=== PATIENT | female | born 1975 | race Caucasian/White ===

== ENCOUNTER 2019-04-30 05:38 | Inpatient (IN) ==
[2019-04-21 11:47] LABS: Apearance,Urine CLEAR (Clear); Bilirubin,Urine Negative (Negative); Blood, Urine Negative (Negative); Glucose,Urine (UA) Negative (Negative); Ketones,Urine Negative (Negative); Nitrite,Urine Negative (Negative); Protein,Urine Negative; RBC,Urine <1 /HPF (0-4); Squamous Epithelial Cell,Urine Occasional /HPF (0-10); Urine Color Straw (Yellow); Urine Specific Gravity 1.006 (1.001-1.035); Urine Urobilinogen < 2.0 EU/DL (0.2-1.0); WBC,Urine <1 /HPF (0-6)
[2019-04-21 11:48] LABS: Basophils # 0.1 10*3/uL (0.0-0.2); Basophils % 0.4 % (0.0-0.8); Eosinophils # 0.2 10*3/uL (0.0-0.87); Eosinophils % 1.5 % (0.00-10.9); Hematocrit 43.6 VOL% (35.7-47.0); Hemoglobin 14.4 GM/DL (12.0-16.0); Immature Granulocytes % 0.6 %; Immature Granulocytes Absolute 0.08 #; Lymphocytes # 2.3 10*3/uL (1.4-4.0); Lymphocytes % 17.2 % (21.3-54.2); Mean Corpuscular Volume 91.8 FL (87-102); Mean Platelet Volume 10.3 FL (9.6-12.0); Monocytes % 4.4 % (1.7-12.7); Neutrophils % 75.9 % (38.7-73.9); Platelet Count 358 T/CUMM (130-400); Red Blood Count 4.75 MC/CUMM (3.8-5.5); Red Cell Distribution Width 13.6 % (9.3-17.3); White Blood Count 13.6 T/CUMM (4-12)
[2019-04-21 12:22] LABS: Albumin 3.5 G/DL (3.4-5.0); Bilirubin,Total 0.4 MG/DL (0.2-1.0); Calcium 8.6 MG/DL (8.5-10.1); Osmolality,Calculated 268.1 MOS/KG (273-304); Risk Ratio 3.39; Total Protein 7.3 G/DL (6.4-8.3); VLDL CHOLESTEROL 31.6 MG/DL
[2019-04-21 13:07] LABS: HIV Antigen/Antibody Result Nonreactive (Nonreactive)
[~2019-04-30 05:38] MED LIST: AMPICILLIN/SULBACTAM 3,000 MG in SODIUM CHLORIDE 0.9% 100 ML IV ONE
[2019-04-30] MEDS ORDERED: BUPIVACAINE MPF 0.5% /EPI 30 ML VIAL ONE (06:21)
[2019-04-30] MEDS ORDERED: DEXAMETHASONE 4 MG/1 ML VIAL ONE ×2 (06:21→09:59)
[2019-04-30] MEDS ORDERED: LACTATED RINGERS 1,000 ML IV SCH ×2 (06:30→12:00)
[2019-04-30] MEDS ORDERED: AMPICILLIN/SULBACTAM 3,000 MG VIAL ONE (06:49)
[2019-04-30] MEDS ORDERED: AMPICILLIN/SULBACTAM 3,000 MG in SODIUM CHLORIDE 0.9% 100 ML IV ONE (07:00)
[2019-04-30] MEDS ORDERED: MICROFIBRILLAR COLLAGEN POWDER 1 GM CAN TOP ONE (08:08)
[2019-04-30] MEDS ORDERED: MIDAZOLAM 2 MG/2 ML VIAL ONE (09:58)
[2019-04-30] MEDS ORDERED: DESFLURANE 1 UNIT/15 MINUTE INH ONE (09:58)
[2019-04-30] MEDS ORDERED: propofoL 200 MG/20 ML VIAL IV ONE (09:58)
[2019-04-30] MEDS ORDERED: LIDOCAINE 2% 5 ML VIAL ONE (09:58)
[2019-04-30] MEDS ORDERED: SUFentanil 50 MCG/ML AMP ONE (09:58)
[2019-04-30] MEDS ORDERED: PHENYLEPHRINE 1 MG/10 ML SYRINGE IV ONE (09:59)
[2019-04-30] MEDS ORDERED: ONDANSETRON 4 MG/2 ML VIAL ONE ×2 (09:59→10:05)
[2019-04-30] MEDS ORDERED: LACTATED RINGERS 2,000 ML IV ONE (09:59)
[2019-04-30] MEDS ORDERED: GLYCOPYRROLATE 0.4 MG/2 ML VIAL ONE (09:59)
[2019-04-30] MEDS ORDERED: ACETAMINOPHEN 1,000 MG/100 ML VIAL IV ONE (09:59)
[2019-04-30] MEDS ORDERED: ROCURONIUM 100 MG/10 ML VIAL IV ONE (09:59)
[2019-04-30] MEDS ORDERED: NEOSTIGMINE 10 MG/10 ML VIAL ONE (09:59)
[2019-04-30] MEDS ORDERED: KETOROLAC 30 MG/1 ML VIAL ONE (09:59)
[2019-04-30] MEDS ORDERED: ONDANSETRON 4 MG/2 ML VIAL IV ONE (10:04)
[2019-04-30 10:14] LABS: Apearance,Urine CLEAR (Clear); Bilirubin,Urine Negative (Negative); Blood, Urine Negative (Negative); Glucose,Urine (UA) Negative (Negative); Ketones,Urine Negative (Negative); Mucus,Urine Occasional /LPF (Occasional); Nitrite,Urine Negative (Negative); Protein,Urine Negative; RBC,Urine 5 /HPF (0-4); Squamous Epithelial Cell,Urine Occasional /HPF (0-10); Urine Color Yellow (Yellow); Urine Specific Gravity 1.019 (1.001-1.035); Urine Urobilinogen < 2.0 EU/DL (0.2-1.0); WBC,Urine 2 /HPF (0-6)
[2019-04-30] MEDS: MORPHINE 10 MG/1 ML VIAL IV PRN ×2 (10:14→10:28)
[2019-04-30] MEDS ORDERED: ONDANSETRON 4 MG/2 ML VIAL IV PRN (11:41)
[2019-04-30] MEDS ORDERED: MEPERIDINE 50 MG/1 ML VIAL IM PRN (11:46)
[2019-04-30] MEDS: MEPERIDINE 50 MG/1 ML VIAL IV PRN ×2 (13:14→17:19)
[2019-04-30] MEDS: AMPICILLIN/SULBACTAM 3,000 MG in SODIUM CHLORIDE 0.9% 100 ML IV SCH ×2 (17:14→23:39)
[2019-04-30 19:19] LABS: Basophils % 0.1 % (0.0-0.8); Hematocrit 39.4 VOL% (35.7-47.0); Hemoglobin 12.7 GM/DL (12.0-16.0); Immature Granulocytes % 0.5 %; Immature Granulocytes Absolute 0.08 #; Lymphocytes # 0.7 10*3/uL (1.4-4.0); Mean Corpuscular HGB Conc 32.2 GM/DL (32-36); Mean Corpuscular Volume 92.5 FL (87-102); Mean Platelet Volume 10.1 FL (9.6-12.0); Monocytes % 1.8 % (1.7-12.7); Neutrophils % 93.6 % (38.7-73.9); Platelet Count 363 T/CUMM (130-400); Red Blood Count 4.26 MC/CUMM (3.8-5.5); Red Cell Distribution Width 13.5 % (9.3-17.3); White Blood Count 16.4 T/CUMM (4-12)
[2019-04-30 19:44] LABS: Lymphocytes 4 % (20-55); Ovalocytes Few; Platelet Estimate Normal; Segmented Neutrophils 94 % (50-85); Total Cells Counted 100
[2019-04-30] MEDS ORDERED: IBUPROFEN 800 MG TABLET PO PRN (21:04)
[2019-04-30] MEDS: DOCUSATE SODIUM 100 MG CAPSULE PO SCH (21:17)
[2019-05-01 05:53] LABS: Basophils % 0.2 % (0.0-0.8); Hematocrit 35.8 VOL% (35.7-47.0); Hemoglobin 11.6 GM/DL (12.0-16.0); Immature Granulocytes % 0.7 %; Immature Granulocytes Absolute 0.12 #; Lymphocytes # 1.3 10*3/uL (1.4-4.0); Lymphocytes % 7.7 % (21.3-54.2); Mean Corpuscular HGB Conc 32.4 GM/DL (32-36); Mean Corpuscular Volume 92.7 FL (87-102); Mean Platelet Volume 10.3 FL (9.6-12.0); Monocytes % 6.4 % (1.7-12.7); Platelet Count 361 T/CUMM (130-400); Red Blood Count 3.86 MC/CUMM (3.8-5.5); Red Cell Distribution Width 13.8 % (9.3-17.3)
[2019-05-01] MEDS ORDERED: METOCLOPRAMIDE 10 MG/10 ML UDCUP PO PRN (07:31)
[2019-05-01] MEDS: DOCUSATE SODIUM 100 MG CAPSULE PO SCH ×2 (09:17→21:12)
[2019-05-01] MEDS: MAGNESIUM HYDROXIDE SUSP 30 ML UDCUP PO PRN ×2 (09:17→21:12)
[2019-05-01] MEDS: SIMETHICONE CHEW 80 MG TABLET PO PRN (09:17)
[2019-05-01] MEDS: METOCLOPRAMIDE 10 MG TABLET PO PRN ×2 (09:56→17:54)
[2019-05-01] MEDS ORDERED: BISACODYL 10 MG SUPP RECTAL PRN (14:15)
[2019-05-02] MEDS: METOCLOPRAMIDE 10 MG TABLET PO PRN ×2 (02:06→09:21)
[2019-05-02] MEDS: MAGNESIUM HYDROXIDE SUSP 30 ML UDCUP PO PRN (09:23)
[2019-05-02] MEDS: SIMETHICONE CHEW 80 MG TABLET PO PRN (09:23)
[2019-05-02] MEDS: DOCUSATE SODIUM 100 MG CAPSULE PO SCH (09:24)
[2019-05-02 12:56] VITALS: BP 129/83
== END 2019-05-02 15:45 | disposition home or self-care (01) | DRG 742 ==
LOC: N.SDSINP 05:38 → N.OR 05:38 → N.SDSINP 06:00 → N.OB 10:43
PROVIDERS: ADMIT Obstetrics & Gynecology; ATTEND Obstetrics & Gynecology